=== PATIENT | female | born 1975 | race Caucasian/White ===

== ENCOUNTER 2020-08-19 15:36 | Emergency (ER) | payer OTHER, SELFPAY ==
--- NOTE | ~2020-08-19 | XR_ITS ---
XR hand RT min 3V DATE: 08/19/2020 15:59 INDICATION: Injury, right thumb and first metacarpal pain TECHNIQUE: 3 views of right hand COMPARISON: None FINDINGS: No fracture or dislocation or other significant bony or soft tissue abnormality is detected . IMPRESSION: Negative Reviewed, dictated and finalized at location A. IMPRESSION: Negative
[2020-08-19 15:59] VITALS: BP 126/79; PULSE 106; RESP 16; TEMP 37.2; O2SAT 98
--- NOTE | 2020-08-19 16:07 | ED.UPPEXIN ---
HPI - Extremity Injury (Upper) General Chief Complaint: Extremity Injury, Upper Stated Complaint: Rt thumb Time Seen by Provider: 08/19/20 15:48 Source: patient and RN notes reviewed Mode of arrival: ambulatory Limitations: no limitations History of Present Illness HPI narrative: Patient presents today complaining of pain to the right hand. Patient states she was moving her rowing machine and dropped a portion of it on her right hand at 1130 this morning. Reports radiation of the pain up her wrist and forearm. Denies numbness or tingling in the arm or hand. She is pain-free at rest, but increases to 7/10 with any movement or grasping. She has been using ice and Advil without relief. She cannot use too much ice that she has Raynaud's phenomenon. Related Data Home Medications Medication Instructions Recorded Confirmed fluoxetine 10 mg DAILY 08/19/20 08/19/20 Allergies Allergy/AdvReac Type Severity Reaction Status Date / Time erythromycin base Allergy Nausea and Verified 08/19/20 15:52 [From E-Mycin] Vomiting Review of Systems Review of Systems: Narrative: CONSTITUTIONAL: Denies body aches, fever, chills, or sweats. EYES: Denies visual changes, redness, or discharge. ENT: Denies rhinorrhea, congestion, sore throat, or otalgia. CARDIOVASCULAR: Denies chest pain, palpitations, or edema. RESPIRATORY: Denies cough or dyspnea. GASTROINTESTINAL: Denies abdominal pain, nausea, vomiting, or diarrhea. GENITOURINARY: Denies dysuria or hematuria. SKIN: Denies rash, itching, or wounds. MUSCULOSKELETAL: Denies back pain, or myalgia. + Right hand injury NEUROLOGIC: Denies headache, numbness, tingling, or weakness. PSYCH: Denies depression or anxiety. [facility] Past Medical History Medical History (Updated 08/19/20 @ 17:34 by Isabella Jensen, STAGE MANAGER, ) Anxiety Depression Raynauds disease Social History Social History Gender identity (if verbalized by the patient): Female Comments At time of signature, I have reviewed and agree with nursing past medical, surgical, social and family history unless otherwise noted. Please see nursing chart for further information. There is no relevant family history pertinent to the presenting complaint Exam Narrative: Exam Narrative: GENERAL: Well-appearing, well-nourished, and in no acute distress. HEAD: Normocephalic, atraumatic. EYES: EOMI. No redness or drainage. Conjunctivae normal. ENT: Mucous membranes pink and moist. NECK: Normal AROM. CHEST: No respiratory distress. EXTREMITIES: Right hand: Mild edema and moderate ecchymosis to the thenar eminence. This area is also tender to palpation. Proximal and distal phalanx are nontender to palpation. Full range of motion of the thumb with increased pain. Distal sensation intact. Capillary refill normal. Radial pulse normal. No snuffbox tenderness. SKIN: Warm, dry, no rash. Capillary refill normal. Normal skin turgor. NEURO: No focal deficits. Alert and oriented x3. Gait steady. PSYCH: Normal affect. No signs of depression or anxiety. Course Vital Signs Vital signs: Vital Signs Temperature 98.9 F 08/19/20 15:59 Pulse Rate 106 H 08/19/20 15:59 Respiratory Rate 16 08/19/20 15:59 Blood Pressure 126/79 08/19/20 15:59 Pulse Oximetry 98 08/19/20 15:59 Temperature 98.9 F 08/19/20 15:59 Pulse Rate 106 H 08/19/20 15:59 Respiratory Rate 16 08/19/20 15:59 Blood Pressure 126/79 08/19/20 15:59 Pulse Oximetry 98 08/19/20 15:59 Reviewed. Pt has been instructed to follow up with her PCP regarding her elevated blood pressure today. MDM - Extremity Injury (Upper) Differential Diagnosis Differential diagnosis: Likely fracture of hand and other (Finger fracture, contusion, dislocation) Imaging Data Radiologist's impression: ITS Impressions Hand X-Ray 08/19/20 16:30 IMPRESSION: Negative Critical Care Time Critical Care Time Critical Care Time: No Discharge Plan
== END 2020-08-19 16:41 | disposition home or self-care (01) ==
PROVIDERS: Emergency Provider Nurse Practitioner
DX: S60.221A Contusion of right hand, initial encounter (principal); W20.8XXA Other cause of strike by thrown, projected or falling object, initial encounter; F41.9 Anxiety disorder, unspecified; F32.9 Major depressive disorder, single episode, unspecified; I73.00 Raynaud's syndrome without gangrene
CPT/HCPCS: 73130; 99203; G0463

== ENCOUNTER 2021-05-31 10:01 | Emergency (ER) | payer OTHER, SELFPAY ==
--- NOTE | 2021-05-31 10:08 | ED.URI ---
HPI - URI/Sore Throat General Chief Complaint: Upper Respiratory Infection Stated Complaint: Cough Time Seen by Provider: 05/31/21 10:15 Source: patient Mode of arrival: ambulatory Limitations: no limitations History of Present Illness HPI Narrative: Ms. Luna is a 45-year-old female patient presenting to the clinic today with complaints of cough, chills, and possible fever x2 weeks. She reports she is coughing up green and brown sputum. She denies any sore throat or wheezing. She is a non-smoker without history of asthma. States she has coughed so hard she has vomited. Has had 3 - Covid test within the last 2 weeks. 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 No known exposure to anyone with Covid or influenza. MD elicited complaint: cough and nasal congestion Related Data Home Medications Medication Instructions Recorded Confirmed cetirizine [Zyrtec] 10 mg PO DAILY 05/31/21 05/31/21 fluticasone propionate [Flonase] 50 mcg INTRANASAL DAILY 05/31/21 05/31/21 Allergies Allergy/AdvReac Type Severity Reaction Status Date / Time erythromycin base Allergy Intermediate Nausea and Verified 05/31/21 10:18 [From E-Mycin] Vomiting Review of Systems Review of Systems: Pertinent positives per HPI. Patient denies any rash, headache, visual changes, dizziness, shortness of breath, chest pain, palpitations, nausea, vomiting, diarrhea, constipation, abdominal pain, or any urinary issues. PMFSH Past Medical History Medical History Anxiety Depression Raynauds disease Social History Social History Gender identity (if verbalized by the patient): Female Comments At the time of my signature, I reviewed and agree with the nursing past medical, surgical, social, and family history. There is no relevant family history pertinent to the patient complaint. Exam Narrative: General: Well-developed, well nourished, in no apparent distress Head: Normocephalic, atraumatic Eyes: Pupils equally round and reactive to light bilaterally, EOM intact, sclera and conjunctive clear, no discharge, lids normal Ears: TMs intact and clear, ear canals clear, no drainage, grossly hearing normal. Nose: Nares patent, clear nasal discharge, mild inflammation, no sinus tenderness. Mouth: Oral pharynx without lesions or masses, good dentition, MMM. Postnasal drip Neck: Supple, trachea midline, no enlargement of anterior or posterior cervical nodes, no thyroid masses or goiter palpable. Cardio: Regular rate and rhythm, s1 and s2 normal, no murmur appreciated. Resp: Clear to auscultation bilaterally, no rhonchi, rales, wheezing or rubs Course Course Emergency Course: Portions of this record may have been created with voice recognition software. Level of Care: Express Care Visit Vital Signs Vital signs: Vital Signs Temperature 36.4 C 05/31/21 10:12 Pulse Rate 96 05/31/21 10:12 Respiratory Rate 18 05/31/21 10:12 Blood Pressure 127/70 05/31/21 10:12 Pulse Oximetry 100 05/31/21 10:12 Temperature 36.4 C 05/31/21 10:12 Pulse Rate 96 05/31/21 10:12 Respiratory Rate 18 05/31/21 10:12 Blood Pressure 127/70 05/31/21 10:12 Pulse Oximetry 100 05/31/21 10:12 Vital signs reviewed MDM - URI/Sore Throat MDM Narrative Medical decision making narrative: At the time of assessment patient is resting comfortably on the exam table. She has a coarse cough that is productive of green/brown sputum. Also has episodes of fever and chills. Lung sounds are clear in the office today but she is unable to take a deep inspiration due to coughing. Has had 3 negative Covid test. Since this has been going on for 2 weeks and she is having the productive sputum I feel that is necessary to go ahead and treat her for a bacterial infection. She is a non-smoker and she does not have a history of asthma. [facility]
[2021-05-31 10:12] VITALS: BP 127/70; PULSE 96; RESP 18; TEMP 36.4; O2SAT 100
== END 2021-05-31 10:30 | disposition home or self-care (01) ==
PROVIDERS: Emergency Provider Nurse Practitioner Family
DX: J22 Unspecified acute lower respiratory infection (principal); I73.00 Raynaud's syndrome without gangrene
CPT/HCPCS: 99213; G0463